=== PATIENT | female | born 1970 | race Caucasian/White ===

== ENCOUNTER 2019-10-16 08:50 | Emergency (ER) | payer BC ==
[~2019-10-16] VITALS: Ht 154.9 cm; Wt 59.1 kg
[2019-10-16] MEDS ORDERED: DiphenhydrAMINE HCL 50 MG/ML VIAL IVP ONE (10:00)
[2019-10-16] MEDS ORDERED: SODIUM CHLORIDE 0.9% 1,000 ML IV ONE (10:00)
[2019-10-16] MEDS ORDERED: METOCLOPRAMIDE HCL 5 MG/ML 2 ML VIAL IVP ONE (10:00)
[2019-10-16] MEDS ORDERED: ONDANSETRON HCL 4 MG/2 ML VIAL IVP ONE (10:00)
[2019-10-16] MEDS ORDERED: ACETAMINOPHEN 500 MG TABLET PO ONE (10:00)
[2019-10-16 10:27] VITALS: BP 125/80
== END 2019-10-16 10:34 | disposition left against medical advice (07) ==
LOC: EMS 08:52
DX: R51 Headache (principal); R11.10 Vomiting, unspecified; Z90.710 Acquired absence of both cervix and uterus